=== PATIENT | female | born 1940 | race Caucasian/White ===

== ENCOUNTER 2019-09-02 11:09 | Inpatient (IN) | payer MEDICARE ==
[~2019-09-02] VITALS: Ht 167.6 cm; Wt 88.4 kg
--- NOTE | 2019-09-02 12:42 | NUR ---
PT ADMITTED. PT ADMITTED AT 1220. VITALS TAKEN. PT SATING IN THE 90S ON 2L O2 VIA NC. PT BROUGHT TO ROOM BY EMS. PT ORIENTED TO ROOM. CALL LIGHT IN REACH. PT CALLING FAMILY NOW. LEVOQUIN INFUSING AT THIS TIME.
[2019-09-02] MEDS ORDERED: LEVSOD137 PO (12:57)
[2019-09-02] MEDS ORDERED: TOPROL XL50 MG PO (12:58)
[2019-09-02] MEDS ORDERED: HYDCHL25 PO (12:58)
[2019-09-02] MEDS ORDERED: Aspir 8181 MG PO (12:59)
[2019-09-02] MEDS ORDERED: ATOR80 PO (13:00)
[2019-09-02] MEDS ORDERED: ZOFRAN4 MG PO (13:01)
[2019-09-02] MEDS ORDERED: CENTRUM SILVER1 EAC5 PO (13:03)
[2019-09-02] MEDS ORDERED: PROBIOTIC (13:03)
[2019-09-02] MEDS ORDERED: Calcium 600 +1 EAC1 PO (13:04)
[2019-09-02] MEDS ORDERED: MAGNESIUM PO (13:05)
[2019-09-02] MEDS ORDERED: METO50 PO (13:55)
--- NOTE | 2019-09-02 18:16 | NUR ---
SHIFT SUMMARY PT SITTING UP IN BED. CALL LIGHT IN REACH. PT IND IN ROOM TO BATHROOM. 2L O2 IN PLACE. TOLERATED WELL. PT A&O. FLU SWAB COLLECTED AND PENDING. NO OTHER CHANGES IN ASSESSMENT AT THIS TIME. VSS. WILL CONTINUE TO MONITOR UNTIL TURNOVER IS COMPLETE.
--- NOTE | 2019-09-02 18:34 | NUR ---
DNR WRISTBAND PLACED. DNR WRSITBAND PLACED TO L WRSIT. VERIFIED BY PATRICA SAVAGE RN
[2019-09-02 21:32] LABS: Influenza A Negative (NEGATIVE); Influenza B Negative (NEGATIVE)
--- NOTE | 2019-09-03 05:00 | NUR ---
SHIFT SUMMARY ADMITTED FOR COUGH (LLL PNEUMONIA). DNR CODE. ON 1.5 LPM O2 THIS SHIFT - O2 SAT IN MID 90'S. RA IS BASELINE. FLU A & B IS RULED OUT, RULE OUT ISOLATION IS NOW DC'D. IV ANTIBIOTICS ARE SCHEDULED. PT IS INDEPENDENT TO BATHROOM. TELEMETRY IS MONITORING: NSR W/PAC'S @ 93 BPM. A&O X4, CARDIAC DIET, LOVENOX FOR DVT PREVENTION, REFUSING FAINA HOSE. SPUTUM SAMPLE STILL NEEDED. LIVES WITH . WATCHING WBC LABS DUE TO LEUKOCYTOSIS. HX: CABG, 4 STENTS, HTN, CAD, AFIB. TYLENOL ORDERED THIS SHIFT FOR CHRONIC BACK/SHOULDER PAIN, PT STATES IT CONTROLLED HER PAIN ADEQUATELY.
[2019-09-03 05:38] LABS: BASOPHILS ABSOLUTE AUTO 0.02 K/mm3 (0.00-0.23); BASOPHILS PERCENT AUTO 0 % (0-2); EOSINOPHILS ABSOLUTE AUTO 0.01 K/mm3 (0.00-0.68); EOSINOPHILS PERCENT AUTO 0 % (0-6); Hematocrit 33.1 % (33.0-51.0); Hemoglobin 10.7 g/dL (11.5-16.0); IMMATURE GRAN ABSOLUTE AUTO 0.07 K/mm3 (0.00-0.10); IMMATURE GRAN PERCENT AUTO 1 % (0-1); LYMPHOCYTES PERCENT AUTO 11 % (21-46); MONOCYTES ABSOLUTE AUTO 1.18 K/mm3 (0.16-1.47); MONOCYTES PERCENT AUTO 8 % (4-13); Mean Corpuscular HGB 28.9 pg (26.0-34.0); Mean Corpuscular HGB Conc 32.3 g/dL (31.5-36.5); Mean Corpuscular Volume 90 fL (80-100); Mean Platelet Volume 10.3 fL (9.1-12.4); NEUTROPHILS ABSOLUTE AUTO 11.87 K/mm3 (1.96-9.15); NEUTROPHILS PERCENT AUTO 81 % (41-73); Platelet Count 308 K/mm3 (150-400); RDW Coefficient Variation 13.6 % (11.7-14.2); RDW Standard Deviation 44.7 fL (35.1-46.3); White Blood Cell Count 14.75 K/mm3 (4.00-11.30)
[2019-09-03 06:03] LABS: Alanine Aminotransfer (ALT/SGP 41 U/L (12-78); Albumin, Blood 2.5 g/dL (3.4-5.0); Albumin/Globulin Ratio 0.6 (0.8-1.8); Alk Phos 104 U/L (50-136); Anion Gap 6 mmol/L (6-16); Aspartate Aminotrans (AST/SGOT 62 U/L (12-37); Bilirubin, Total 0.7 mg/dL (0.1-1.0); Blood Urea Nitrogen 12 mg/dL (8-24); Bun/Creatinine Ratio 18.3 (12.0-20.0); CO2, Blood 30 mmol/L (21-32); Calcium, Blood 8.3 mg/dL (8.5-10.1); Chloride, Blood 89 mmol/L (98-108); Creatinine, Blood 0.66 mg/dL (0.40-1.00); Globulin, Blood 3.9 g/dL (2.2-4.0); Glomerular Filtration Rate >60 (60-); Glucose, Blood 147 mg/dL (70-99); Potassium, Blood 3.3 mmol/L (3.5-5.5); Sodium, Blood 125 mmol/L (136-145); Total Protein, Blood 6.4 g/dL (6.4-8.2)
--- NOTE | 2019-09-03 09:15 | NUR ---
PT ON RA. PT SATING AT 93-95% ON RA. WILL CONTINUE TO MONITOR FOR DESATURATION.
--- NOTE | 2019-09-03 17:38 | NUR ---
SHIFT SUMMARY PT HAD ANXIETY THIS AM. PT MEDICATED WITH ATIVAN AND TOOK A SMALL NAP. PT NOW STATES SHE "FEELS MUCH BETTER." PT AMBULATING TO BATHROOM INDEPENDENTLY. USING O2 ONLY WHEN AMBULATING. PT SATING IN THE 90S ON RA OTHERWISE. NO OTHER CHANGES IN ASSESSMENT AT THIS TIME. VSS. WILL CONTINUE TO MONITOR UNTIL TURNOVER IS COMPLETE.
--- NOTE | 2019-09-04 03:59 | NUR ---
NUCLEAR PHYSICS TEACHER SUMMARY PT A/O X4. SLEPT OFF AND ON TONIGHT. ON ROOM AIR SATTING ABOVE 90% INDEPENDENT IN ROOM. SOB WHEN AMBULATING TO BATHROOM. NASAL CANNULA BY BEDSIDE. PT KNOWS TO PUT NASAL CANNULA WITH 1L BACK ON WHEN HAVING SOB. DENIES PAIN. PT HAS SOME MUSCLE ACHES ON HER BACK AND SHOULDERS. WARM PAD PLACED ACROSS HER BACK. PT SEEMS TO ENJOY THAT. PT STATED SHE HAS NOT HAD SPUTUM FOR HER SPUTUM COLLECTION. VITALS STABLE. SHE DID NOT EXPERIENCE ANY ANXIETY TONIGHT. NO ACUTE CHANGES, WILL CONTINUE TO MONITOR.
[2019-09-04 05:08] LABS: BASOPHILS ABSOLUTE AUTO 0.02 K/mm3 (0.00-0.23); BASOPHILS PERCENT AUTO 0 % (0-2); EOSINOPHILS ABSOLUTE AUTO 0.06 K/mm3 (0.00-0.68); EOSINOPHILS PERCENT AUTO 1 % (0-6); Hematocrit 33.6 % (33.0-51.0); IMMATURE GRAN ABSOLUTE AUTO 0.04 K/mm3 (0.00-0.10); IMMATURE GRAN PERCENT AUTO 0 % (0-1); LYMPHOCYTES ABSOLUTE AUTO 1.32 K/mm3 (0.84-5.20); LYMPHOCYTES PERCENT AUTO 12 % (21-46); MONOCYTES ABSOLUTE AUTO 0.81 K/mm3 (0.16-1.47); MONOCYTES PERCENT AUTO 7 % (4-13); Mean Corpuscular HGB 29.1 pg (26.0-34.0); Mean Corpuscular HGB Conc 32.7 g/dL (31.5-36.5); Mean Corpuscular Volume 89 fL (80-100); Mean Platelet Volume 9.7 fL (9.1-12.4); NEUTROPHILS ABSOLUTE AUTO 8.82 K/mm3 (1.96-9.15); NEUTROPHILS PERCENT AUTO 80 % (41-73); Platelet Count 328 K/mm3 (150-400); RDW Coefficient Variation 13.3 % (11.7-14.2); RDW Standard Deviation 43.4 fL (35.1-46.3); Red Blood Cell Count 3.78 M/mm3 (3.80-5.20); White Blood Cell Count 11.07 K/mm3 (4.00-11.30)
[2019-09-04 05:31] LABS: Alanine Aminotransfer (ALT/SGP 46 U/L (12-78); Albumin, Blood 2.4 g/dL (3.4-5.0); Albumin/Globulin Ratio 0.6 (0.8-1.8); Alk Phos 104 U/L (50-136); Anion Gap 8 mmol/L (6-16); Aspartate Aminotrans (AST/SGOT 64 U/L (12-37); Bilirubin, Total 0.5 mg/dL (0.1-1.0); Blood Urea Nitrogen 11 mg/dL (8-24); Bun/Creatinine Ratio 17.1 (12.0-20.0); CO2, Blood 30 mmol/L (21-32); Calcium, Blood 8.6 mg/dL (8.5-10.1); Chloride, Blood 88 mmol/L (98-108); Creatinine, Blood 0.64 mg/dL (0.40-1.00); Globulin, Blood 4.1 g/dL (2.2-4.0); Glomerular Filtration Rate >60 (60-); Glucose, Blood 86 mg/dL (70-99); Potassium, Blood 3.5 mmol/L (3.5-5.5); Sodium, Blood 126 mmol/L (136-145); Total Protein, Blood 6.5 g/dL (6.4-8.2)
--- NOTE | 2019-09-04 06:50 | NUR ---
Patient gave permission on 09-03-19 to work with this student on 09-04-19
[2019-09-04] MEDS ORDERED: ACET325 PO (12:57)
[2019-09-04] MEDS ORDERED: CEFD300 PO (12:58)
[2019-09-04] MEDS ORDERED: GUAI600T33 PO (12:59)
[2019-09-04] MEDS ORDERED: OMEP20ER PO (13:00)
[2019-09-04] MEDS ORDERED: TRAZ50 PO (13:01)
[2019-09-04] MEDS ORDERED: ALBU90OI INH (13:03)
--- NOTE | 2019-09-04 14:25 | NUR ---
PT DISCHARGED. PT DISCAHRGED AT 1423. PT IN STABLE CONDTION. IV REMOVED & INTACT. PT EDUCATED ON DC INSTRUCTIONS & FOLLOW UP APPOINTMENTS. NEW MEDS FAXED TO [facility]. PT DENIES NEED FOR FURTHER INSTRUCTION. PT WHEELED OUT BY ESCORT VOLUNTEER AND DRIVEN HOME BY FRIEND.
== END 2019-09-04 14:28 | disposition home or self-care (01) | DRG 193 ==
LOC: EFM RAD 11:09 → MEDS 12:39
PROVIDERS: ADMIT Family Medicine
DX: J18.9 Pneumonia, unspecified organism (principal); J96.01 Acute respiratory failure with hypoxia; G93.41 Metabolic encephalopathy; E87.1 Hypo-osmolality and hyponatremia; E87.6 Hypokalemia; T36.8X5A Adverse effect of other systemic antibiotics, initial encounter; G47.00 Insomnia, unspecified; Z66 Do not resuscitate; E03.9 Hypothyroidism, unspecified; I10 Essential (primary) hypertension; E78.5 Hyperlipidemia, unspecified; Z95.1 Presence of aortocoronary bypass graft; Z95.5 Presence of coronary angioplasty implant and graft; Z79.82 Long term (current) use of aspirin; Z79.899 Other long term (current) drug therapy; Z87.891 Personal history of nicotine dependence
CPT/HCPCS: 36415; 71046; 80053; 85025; 87804; 94761; A9270; J0696; J1650; J1956; J7050

== ENCOUNTER → 2019-09-02 | Outpatient (CLI) | payer MEDICARE ==
[~2019-09-02] MED LIST: ACET325 PO; ALBU90OI INH; ATOR80 PO; Aspir 8181 MG PO; CEFD300 PO; CENTRUM SILVER1 EAC5 PO; Calcium 600 +1 EAC1 PO; GUAI600T33 PO; HYDCHL25 PO; LEVSOD137 PO; MAGNESIUM PO; METO50 PO; OMEP20ER PO; PROBIOTIC; TOPROL XL50 MG PO; TRAZ50 PO; ZOFRAN4 MG PO
[2019-09-02 11:08] LABS: BASOPHILS ABSOLUTE AUTO 0.05 K/mm3 (0.00-0.23); BASOPHILS PERCENT AUTO 0 % (0-2); EOSINOPHILS ABSOLUTE AUTO 0.02 K/mm3 (0.00-0.68); EOSINOPHILS PERCENT AUTO 0 % (0-6); Hematocrit 34.5 % (33.0-51.0); Hemoglobin 11.3 g/dL (11.5-16.0); IMMATURE GRAN ABSOLUTE AUTO 0.07 K/mm3 (0.00-0.10); IMMATURE GRAN PERCENT AUTO 0 % (0-1); LYMPHOCYTES ABSOLUTE AUTO 1.26 K/mm3 (0.84-5.20); LYMPHOCYTES PERCENT AUTO 7 % (21-46); MONOCYTES ABSOLUTE AUTO 1.18 K/mm3 (0.16-1.47); MONOCYTES PERCENT AUTO 6 % (4-13); Mean Corpuscular HGB 29.4 pg (26.0-34.0); Mean Corpuscular HGB Conc 32.8 g/dL (31.5-36.5); Mean Corpuscular Volume 90 fL (80-100); Mean Platelet Volume 9.8 fL (9.1-12.4); NEUTROPHILS PERCENT AUTO 86 % (41-73); Platelet Count 310 K/mm3 (150-400); RDW Coefficient Variation 14.1 % (11.7-14.2); RDW Standard Deviation 45.8 fL (35.1-46.3); Red Blood Cell Count 3.85 M/mm3 (3.80-5.20); White Blood Cell Count 18.58 K/mm3 (4.00-11.30)
[2019-09-02 11:44] LABS: Alanine Aminotransfer (ALT/SGP 34 U/L (12-78); Albumin, Blood 2.8 g/dL (3.4-5.0); Albumin/Globulin Ratio 0.6 (0.8-1.8); Alk Phos 117 U/L (50-136); Anion Gap 7 mmol/L (6-16); Aspartate Aminotrans (AST/SGOT 47 U/L (12-37); Bilirubin, Total 0.7 mg/dL (0.1-1.0); Blood Urea Nitrogen 15 mg/dL (8-24); Bun/Creatinine Ratio 21.6 (12.0-20.0); CO2, Blood 31 mmol/L (21-32); Calcium, Blood 8.9 mg/dL (8.5-10.1); Chloride, Blood 92 mmol/L (98-108); Creatinine, Blood 0.69 mg/dL (0.40-1.00); Globulin, Blood 4.5 g/dL (2.2-4.0); Glomerular Filtration Rate >60 (60-); Glucose, Blood 115 mg/dL (70-99); Potassium, Blood 3.8 mmol/L (3.5-5.5); Sodium, Blood 130 mmol/L (136-145); Total Protein, Blood 7.3 g/dL (6.4-8.2)
== END ==
LOC: LAB SHORT 11:00 → LAB EV 11:00
PROVIDERS: Emergency Medicine
DX: R05 Cough (principal)
CPT/HCPCS: 80053; 85025

== ENCOUNTER 2021-02-08 08:05 | Day surgery (SDC) | payer MEDICARE ==
[~2021-02-08] VITALS: Ht 165.1 cm; Wt 80.6 kg
--- NOTE | 2021-02-08 10:05 | NUR ---
02/08/21 1005 Jaky Morgan [facility] CASE WITH DR. TRINIDAD. SEE ANETHESIA RECORD FOR CARE
--- NOTE | 2021-02-08 11:22 | NUR ---
Patient up to Ambulate independently. Gait steady. Discharge instructions reviewed with patient. Patient verbalizes understanding. Copy given to patient to take home. Discharged via wheelchair to private car for ride home. DR. HUNTER MADE APPOINT AT [facility] FOR PATIENT TO FOLLOW UP WITH DR. SHAH. INFORMATION WRITTEN ON TOP OF DISCHARGE INSTRUCTION PATINET COPY.
== END 2021-02-08 23:01 | disposition home or self-care (01) ==
LOC: ORSCMMR 08:05 → ORD 08:05 → ORSCMMR 08:06 → ORD 10:00
PROVIDERS: Surgery
PROC: 0DBP8ZX Excision of Rectum, Via Natural or Artificial Opening Endoscopic, Diagnostic (ICD-10-PCS; principal; 2021-02-08 10:00)
DX: C20 Malignant neoplasm of rectum (principal); I10 Essential (primary) hypertension; I25.10 Atherosclerotic heart disease of native coronary artery without angina pectoris; K21.9 Gastro-esophageal reflux disease without esophagitis; E78.5 Hyperlipidemia, unspecified; E03.9 Hypothyroidism, unspecified; Z95.1 Presence of aortocoronary bypass graft; Z87.891 Personal history of nicotine dependence; Z79.82 Long term (current) use of aspirin; Z79.899 Other long term (current) drug therapy
CPT/HCPCS: J2704; J7120

== ENCOUNTER 2021-02-26 08:25 | Day surgery (SDC) | payer MEDICARE ==
[~2021-02-26] VITALS: Ht 165.1 cm; Wt 79.7 kg
[~2021-02-26 08:25] MED LIST changes: +[UNRECOGNIZED DRUG - OTHER] PO
--- NOTE | 2021-02-26 11:50 | NUR ---
02/26/21 1150 Flora Jackson NACL AND HEPARIN USED TO FLUSH MEDIPORT.
--- NOTE | 2021-02-26 12:36 | NUR ---
02/26/21 1236 Aparna Montague 1230-XRAY IN THE ROOM AT THIS TIME.
== END 2021-02-26 13:13 | disposition home or self-care (01) ==
LOC: ORSCSDS 08:25
PROVIDERS: Surgery
PROC: 0JH60WZ Insertion of Totally Implantable Vascular Access Device into Chest Subcutaneous Tissue and Fascia, Open Approach (ICD-10-PCS; principal; 2021-02-26 10:00)
DX: C21.8 Malignant neoplasm of overlapping sites of rectum, anus and anal canal (principal); I10 Essential (primary) hypertension; I25.10 Atherosclerotic heart disease of native coronary artery without angina pectoris; J45.909 Unspecified asthma, uncomplicated; Z87.891 Personal history of nicotine dependence; K21.9 Gastro-esophageal reflux disease without esophagitis; Z79.82 Long term (current) use of aspirin; Z79.899 Other long term (current) drug therapy
CPT/HCPCS: 77001; 93005; 93010; C1788; J0690; J1100; J1642; J1885; J2001; J2250; J2405; J2704; J3010; J7120

== ENCOUNTER 2021-05-12 21:26 | Emergency (ER) | payer MEDICARE ==
[~2021-05-12] VITALS: Ht 167.6 cm; Wt 72.6 kg
[2021-05-12 22:07] LABS: Source, Urine Voided
[2021-05-12 22:10] LABS: Hematocrit 31.8 % (33.0-51.0); Hemoglobin 10.6 g/dL (11.5-16.0); Mean Corpuscular HGB 29.4 pg (26.0-34.0); Mean Corpuscular HGB Conc 33.3 g/dL (31.5-36.5); Mean Corpuscular Volume 88 fL (80-100); Mean Platelet Volume 9.7 fL (9.1-12.4); NRBC ABSOLUTE 0.03 K/mm3 (0.00-0.02); NRBC Auto 0.4 /100 WBC (0.0-0.2); Platelet Count 254 K/mm3 (150-400); RDW Coefficient Variation 20.7 % (11.7-14.2); RDW Standard Deviation 66.4 fL (35.1-46.3)
[2021-05-12 22:11] LABS: Bilirubin, Urine Neg (Neg); Blood, Urine 1+ (Neg); Glucose Qualitative, Urine Neg (Neg); Ketones, Urine Neg (Neg); Leukocyte Esterase, Urine 1+ (Neg); Nitrite, Urine Neg (Neg); Protein, Urine 3+ (Neg); Urobilinogen, Urine 2+ (Normal)
[2021-05-12 22:21] LABS: Appearance, Urine Clear (Clear); Color, Urine Yellow (P-Yellow)
[2021-05-12 22:22] LABS: Amorphous Light (0-Heavy); Bacteria Not Seen /hpf; Red Blood Cells, Urine Rare /hpf (0-2); Squamous Epithelial Cells Not Seen /hpf (Few); White Blood Cells, Urine 0-2 /hpf (0-5)
[2021-05-12 22:29] LABS: Alanine Aminotransfer (ALT/SGP 25 U/L (12-78); Albumin, Blood 2.4 g/dL (3.4-5.0); Albumin/Globulin Ratio 0.6 (0.8-1.8); Alk Phos 102 U/L (50-136); Anion Gap 8 mmol/L (6-16); Aspartate Aminotrans (AST/SGOT 42 U/L (12-37); Bilirubin, Total 0.4 mg/dL (0.1-1.0); Blood Urea Nitrogen 16 mg/dL (8-24); Bun/Creatinine Ratio 22.4 (12.0-20.0); CO2, Blood 27 mmol/L (21-32); Calcium, Blood 9.4 mg/dL (8.5-10.1); Chloride, Blood 95 mmol/L (98-108); Creatinine, Blood 0.71 mg/dL (0.40-1.00); Globulin, Blood 3.8 g/dL (2.2-4.0); Glomerular Filtration Rate >60 (60-); Glucose, Blood 134 mg/dL (70-99); Potassium, Blood 3.3 mmol/L (3.5-5.5); Sodium, Blood 130 mmol/L (136-145); Total Protein, Blood 6.2 g/dL (6.4-8.2)
[2021-05-12 22:36] LABS: BAND PERCENT MAN 25 % (0-8); BASOPHILS PERCENT MAN 0 % (0-2); EOSINOPHILS PERCENT MAN 0 % (0-6); LYMPHOCYTES ABSOLUTE MAN 0.64 K/mm3 (0.84-5.20); LYMPHOCYTES PERCENT MAN 9 % (21-46); METAMYELOCYTE ABSOLUTE MAN 0.14 K/mm3 (0.00-0.00); METAMYELOCYTE PERCENT MAN 2 % (0-0); MONOCYTES ABSOLUTE MAN 0.43 K/mm3 (0.16-1.47); MONOCYTES PERCENT MAN 6 % (4-13); MYELOCYTE ABSOLUTE MAN 0.07 K/mm3 (0.00-0.00); MYELOCYTE PERCENT MAN 1 % (0-0); SEG NEUTROPHILS PERCENT MAN 57 % (41-73); TOTAL CELLS COUNTED 100
[2021-05-13] MEDS ORDERED: Magnesium Citr296 ML PO (00:39)
[2021-05-13] MEDS ORDERED: Colace100 MG PO (00:39)
== END 2021-05-13 01:41 | disposition home or self-care (01) ==
LOC: ER 21:26
PROVIDERS: Emergency Medicine
DX: R10.30 Lower abdominal pain, unspecified (principal); R19.7 Diarrhea, unspecified; I25.10 Atherosclerotic heart disease of native coronary artery without angina pectoris; I10 Essential (primary) hypertension; E78.5 Hyperlipidemia, unspecified; E03.9 Hypothyroidism, unspecified; Z88.0 Allergy status to penicillin; Z88.8 Allergy status to other drugs, medicaments and biological substances; Z79.899 Other long term (current) drug therapy; Z79.82 Long term (current) use of aspirin; Z95.5 Presence of coronary angioplasty implant and graft; Z87.891 Personal history of nicotine dependence
CPT/HCPCS: 51701; 51798; 74177; 80053; 81001; 83690; 85025; 87086; 96374; 96375; 99285-25; J1885; J2270; J2405; Q9967

== ENCOUNTER 2021-06-22 16:27 | Emergency (ER) | payer MEDICARE ==
[~2021-06-22] VITALS: Ht 165.1 cm; Wt 77.1 kg
[~2021-06-22 16:27] MED LIST changes: +Colace100 MG PO; +Magnesium Citr296 ML PO
== END 2021-06-22 18:39 | disposition home or self-care (01) ==
LOC: ER 16:27
DX: S00.11XA Contusion of right eyelid and periocular area, initial encounter (principal); S00.83XA Contusion of other part of head, initial encounter; Z88.0 Allergy status to penicillin; Z88.8 Allergy status to other drugs, medicaments and biological substances; Z79.82 Long term (current) use of aspirin; Z79.899 Other long term (current) drug therapy; Z87.891 Personal history of nicotine dependence; W19.XXXA Unspecified fall, initial encounter
CPT/HCPCS: 70450; 72125

== ENCOUNTER 2021-10-06 02:09 | Inpatient (IN) | payer MEDICARE ==
[~2021-10-06] VITALS: Ht 165.1 cm; Wt 74.4 kg
[~2021-10-06 02:09] MED LIST changes: +EUTHYROX125 MCG PO; -LEVSOD137 PO; -METO50 PO; +METO50ER PO
[2021-10-06 02:38] LABS: BASOPHILS ABSOLUTE AUTO 0.02 K/mm3 (0.00-0.23); BASOPHILS PERCENT AUTO 0 % (0-2); EOSINOPHILS ABSOLUTE AUTO 0.02 K/mm3 (0.00-0.68); EOSINOPHILS PERCENT AUTO 0 % (0-6); Hematocrit 35.7 % (33.0-51.0); Hemoglobin 10.6 g/dL (11.5-16.0); IMMATURE GRAN ABSOLUTE AUTO 0.03 K/mm3 (0.00-0.10); IMMATURE GRAN PERCENT AUTO 0 % (0-1); LYMPHOCYTES ABSOLUTE AUTO 0.45 K/mm3 (0.84-5.20); LYMPHOCYTES PERCENT AUTO 5 % (21-46); MONOCYTES ABSOLUTE AUTO 0.24 K/mm3 (0.16-1.47); MONOCYTES PERCENT AUTO 3 % (4-13); Mean Corpuscular HGB 29.9 pg (26.0-34.0); Mean Corpuscular HGB Conc 29.7 g/dL (31.5-36.5); Mean Corpuscular Volume 101 fL (80-100); Mean Platelet Volume 9.8 fL (9.1-12.4); NEUTROPHILS ABSOLUTE AUTO 7.61 K/mm3 (1.96-9.15); NEUTROPHILS PERCENT AUTO 91 % (41-73); Platelet Count 306 K/mm3 (150-400); RDW Coefficient Variation 16.2 % (11.7-14.2); RDW Standard Deviation 59.7 fL (35.1-46.3); Red Blood Cell Count 3.55 M/mm3 (3.80-5.20); White Blood Cell Count 8.37 K/mm3 (4.00-11.30)
[2021-10-06 02:55] LABS: Alanine Aminotransfer (ALT/SGP 43 U/L (12-78); Albumin, Blood 2.4 g/dL (3.4-5.0); Albumin/Globulin Ratio 0.6 (0.8-1.8); Alk Phos 140 U/L (50-136); Anion Gap 9 mmol/L (6-16); Aspartate Aminotrans (AST/SGOT 49 U/L (12-37); Bilirubin, Total 0.3 mg/dL (0.1-1.0); Blood Urea Nitrogen 19 mg/dL (8-24); Bun/Creatinine Ratio 23.3 (12.0-20.0); CO2, Blood 24 mmol/L (21-32); Chloride, Blood 104 mmol/L (98-108); Creatinine, Blood 0.82 mg/dL (0.40-1.00); Globulin, Blood 4.3 g/dL (2.2-4.0); Glomerular Filtration Rate >60 (60-); Glucose, Blood 169 mg/dL (70-99); Sodium, Blood 137 mmol/L (136-145); Total Protein, Blood 6.7 g/dL (6.4-8.2)
[2021-10-06 05:14] LABS: Source, Urine Straight Cath
[2021-10-06 05:21] LABS: Bilirubin, Urine Neg (Neg); Blood, Urine 4+ (Neg); Glucose Qualitative, Urine Neg (Neg); Ketones, Urine Neg (Neg); Leukocyte Esterase, Urine 3+ (Neg); Nitrite, Urine Neg (Neg); Protein, Urine 3+ (Neg); Urobilinogen, Urine NORM (Normal)
[2021-10-06 05:32] LABS: Appearance, Urine Hazy (Clear); Bacteria Few /hpf; Color, Urine Yellow (P-Yellow); Squamous Epithelial Cells Few /hpf (Few); White Blood Cells, Urine 25-50 /hpf (0-5)
--- NOTE | 2021-10-06 17:13 | NUR ---
SUMMARY PT ADMITTED FROM THE ER, PT SLID FROM THE GURNEY TO THE BED WITH STAFF ASSIST, PT IS ALERT AND ORIENTED, SHE REPORTS SHE CANNOT GET UP TO AMBULATE DUE TO ABD PAIN, BUT REPORTS SHE IS NORMALLY ABLE TO AMBULATE WITH A WALKER, PT'S IV FLUIDS INFUSING THROUGH MEDIPORT R CHEST WALL, ACCESSED IN THE ER, PT C/O SEVERE ABD PAIN UPON ARRIVAL, MED PER EMAR WITH LITTLE SUCCESS, CALL TO DR LEAL TO CHANGE PAIN MEDICATIONS, PT HAS BEEN MED PER EMAR FOR PAIN AND NAUSEA AND REPORTS IS NOW FEELING A LITTLE BETTER, PT PLACED ON PUR-WICK FOR URINARY INCONTINENCE, PER PT REQUEST, URINE IS CLEAR VASILIY, SPOUSE HAS BEEN IN TO VISIT, SURGEON HAS BEEN CONSULTED, WAITING FOR THEIR RECOMMENDATIONS, VSS, WILL CONT TO MONITOR
[2021-10-07 05:18] LABS: BASOPHILS ABSOLUTE AUTO 0.03 K/mm3 (0.00-0.23); BASOPHILS PERCENT AUTO 0 % (0-2); EOSINOPHILS ABSOLUTE AUTO 0.03 K/mm3 (0.00-0.68); EOSINOPHILS PERCENT AUTO 0 % (0-6); Hematocrit 28.6 % (33.0-51.0); Hemoglobin 8.4 g/dL (11.5-16.0); IMMATURE GRAN PERCENT AUTO 1 % (0-1); LYMPHOCYTES ABSOLUTE AUTO 0.22 K/mm3 (0.84-5.20); LYMPHOCYTES PERCENT AUTO 1 % (21-46); MONOCYTES ABSOLUTE AUTO 0.44 K/mm3 (0.16-1.47); MONOCYTES PERCENT AUTO 3 % (4-13); Mean Corpuscular HGB 29.6 pg (26.0-34.0); Mean Corpuscular HGB Conc 29.4 g/dL (31.5-36.5); Mean Corpuscular Volume 101 fL (80-100); Mean Platelet Volume 9.3 fL (9.1-12.4); NEUTROPHILS ABSOLUTE AUTO 17.05 K/mm3 (1.96-9.15); NEUTROPHILS PERCENT AUTO 95 % (41-73); Platelet Count 204 K/mm3 (150-400); RDW Coefficient Variation 16.5 % (11.7-14.2); RDW Standard Deviation 61.2 fL (35.1-46.3); Red Blood Cell Count 2.84 M/mm3 (3.80-5.20); White Blood Cell Count 17.87 K/mm3 (4.00-11.30)
--- NOTE | 2021-10-07 05:44 | NUR ---
Rn summary: Patient is alert and orineted. Pt did have significant lower abdominal pain at beginning of shift. Pt then was able to sleep for 3 hours soundly. Pt does have a large hernia on her abdomen. Abdomen is tender to touch. Bowel tones hypoactive. Pt did have one lg liq incontinent stool. Pt had been using a purwick but wanted to try just pull ups this am. Pt had 430 out this shift. Urine is sami with a tinge of pink. Pt has been medicated this shift with Lortab 5/325mg at 0110 with good relief. This am pt had increased discomfort and dilaudid 1 mg IV given with good relief. Pt has a mediport that is accessed. Site looks good. Call light is in reach. Will continue to monitor.
[2021-10-07 05:51] LABS: Alanine Aminotransfer (ALT/SGP 31 U/L (12-78); Albumin/Globulin Ratio 0.5 (0.8-1.8); Alk Phos 106 U/L (50-136); Anion Gap 4 mmol/L (6-16); Aspartate Aminotrans (AST/SGOT 29 U/L (12-37); Bilirubin, Total 0.6 mg/dL (0.1-1.0); Blood Urea Nitrogen 17 mg/dL (8-24); Bun/Creatinine Ratio 21.6 (12.0-20.0); CO2, Blood 29 mmol/L (21-32); Calcium, Blood 8.7 mg/dL (8.5-10.1); Chloride, Blood 103 mmol/L (98-108); Creatinine, Blood 0.79 mg/dL (0.40-1.00); Glomerular Filtration Rate >60 (60-); Glucose, Blood 113 mg/dL (70-99); Potassium, Blood 4.1 mmol/L (3.5-5.5); Sodium, Blood 136 mmol/L (136-145)
--- NOTE | 2021-10-07 12:12 | NUR ---
Spoke with Dr Tubbs and discussed case. Pt appears to be struggling regarding having surgery. Pt may benefit from Palliative Care visit. Pt resting in bed and is A&OX4. Pt denies pain and dyspnea at this time. Pt does report mild but manageable anxiety. Engaged in therapeutic listening as Pt discusses her [facility]. Pt reports being in her 3rd marriage and having 7 children that she "inherited". 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 Pt states "I'm tired". She reports she is in agreement with Dr Roberts' plan for 1 radiation treatment, 1 chemo therapy treatment and 1 surgery. She states she wants the rodas, resection and colostomy done at the same time. She states she won't agree to surgery if this can not be done. Pt states she was told with this plan the cancer would be cured. She reports if complications arise after surgery her plan is to focus on comfort and hospice. She does report not telling her spouse of plan. Discussed the importance of communicating with family in order for them to understand her wishes. She reports plan to gather family to assist with telling her of her plan. Continued therapeutic listening. Pt expresses appreciation and reports no other concerns at this time. Spoke with Primary JORDYN Arauz and discussed case. Palliative Care will remain availabe.
--- NOTE | 2021-10-07 18:54 | NUR ---
SHIFT SUMMARY PT AXO PLEASANT AND COOPERATIVE WITH CARE. MEDICATED FOR PAIN PER EMAR. SOB WITH REPOSITIONING AND LONG CONVERSATION. VSS. PT ON 1.5L VIA NC 92-95%. PT TOLERATING FULL LIQUID DIET. PHYSICAL THERAPY EVALUATED PT, SEE NOTE. BED IN LOW POSITION, CALL LIGHT WITHIN REACH. INCONTINENT. CALLS APPROPRIATELY. 1 BM THIS SHIFT, LIQUID BROWN STOOL. VASILIY URINE.
--- NOTE | 2021-10-08 03:23 | NUR ---
SHIFT SUMMARY PT CONTINUES TO REMAIN A/OX4, ABLE TO REPOSITION SELF IN BED. PAIN CONTROL PRIMARY GOAL DURING SHIFT- PT COMPLAINTS CHRONIC GENERALIZED PAIN AND ABDOMINAL PAIN. RESPONDING WELL TO NORCO AND PRN BREAKTHROUGH MORPHINE.
[2021-10-08 10:20] LABS: BASOPHILS ABSOLUTE AUTO 0.04 K/mm3 (0.00-0.23); BASOPHILS PERCENT AUTO 0 % (0-2); EOSINOPHILS ABSOLUTE AUTO 0.15 K/mm3 (0.00-0.68); EOSINOPHILS PERCENT AUTO 1 % (0-6); Hematocrit 28.2 % (33.0-51.0); Hemoglobin 8.6 g/dL (11.5-16.0); IMMATURE GRAN ABSOLUTE AUTO 0.26 K/mm3 (0.00-0.10); IMMATURE GRAN PERCENT AUTO 1 % (0-1); LYMPHOCYTES ABSOLUTE AUTO 0.19 K/mm3 (0.84-5.20); LYMPHOCYTES PERCENT AUTO 1 % (21-46); MONOCYTES ABSOLUTE AUTO 0.39 K/mm3 (0.16-1.47); MONOCYTES PERCENT AUTO 2 % (4-13); Mean Corpuscular HGB Conc 30.5 g/dL (31.5-36.5); Mean Corpuscular Volume 98 fL (80-100); Mean Platelet Volume 9.7 fL (9.1-12.4); NEUTROPHILS ABSOLUTE AUTO 21.35 K/mm3 (1.96-9.15); NEUTROPHILS PERCENT AUTO 95 % (41-73); Platelet Count 218 K/mm3 (150-400); RDW Coefficient Variation 16.4 % (11.7-14.2); RDW Standard Deviation 59.5 fL (35.1-46.3); Red Blood Cell Count 2.87 M/mm3 (3.80-5.20); White Blood Cell Count 22.38 K/mm3 (4.00-11.30)
[2021-10-08 10:35] LABS: Anion Gap 4 mmol/L (6-16); Blood Urea Nitrogen 12 mg/dL (8-24); Bun/Creatinine Ratio 17.3 (12.0-20.0); CO2, Blood 29 mmol/L (21-32); Calcium, Blood 8.7 mg/dL (8.5-10.1); Chloride, Blood 102 mmol/L (98-108); Glomerular Filtration Rate >60 (60-); Glucose, Blood 110 mg/dL (70-99); Potassium, Blood 3.9 mmol/L (3.5-5.5); Sodium, Blood 135 mmol/L (136-145)
--- NOTE | 2021-10-08 12:26 | NUR ---
Pt resting in bed speaking with Primary RN Radha. Pt discussing to Primary RN how she does not have a choice but to do surgery. She reports at her age she has no other options. She does report being agreement to do surgery though. She requesting to start her bowel prep today for when she goes to [place] on Monday. She has instructed her to bring in the instruction sheet for her GI specialist office. Spoke with Radha and discussed case. Palliative Care will remain available.
--- NOTE | 2021-10-08 16:40 | NUR ---
SHIFT SUMMARY PATIENT MEDICATED FOR PAIN X4. PATIENT MEDICATED FOR NAUSEA X1. PATIENT DENIES SOB. PATIENT IS A 1 PERSON TRANSFER WITH A FWW. PATIENT STATES SHE FEELS TOO WEAK TO GET OUT OF BED TODAY. PATIENT REQUESTING SURGERY PREP. ENCOURAGED PATIENT TO CALL AND HAVE HIM BRING IN THE INSTRUCTIONS. DR. HUNTER SAW PATIENT. THE SURGICAL PREP IS ENSURE AT LEAST TWICE PER DAY, SHE GETS THESE WITH HER MEALS. PATIENT VISITED IN AFTERNOON. PALLIATIVE CARE VISITED. PATIENT STATED SHE DOES WANT SURGERY. PER DR. HUNTER NOTE, HE IS RECOMMENDING PATIENT STAY IN HOSPITAL TILL TRANSFER TO [facility] FOR SURGERY ON MONDAY 11/13. PATIENT SEEMS ANXIOUS TODAY. PROVIDED LISTENING. PATIENT DRINKING ENSURES WELL. PATIENT IS PLEASANT AND COOPERATIVE WITH CARE.
--- NOTE | 2021-10-09 03:41 | NUR ---
SHIFT SUMMARY: IMPROVED PAIN CONTROL DURING THIS SHIFT. PATIENT ABLE TO REST COMFORTABLY FOR MAJORITY OF SHIFT. ROUNDED ON PATIENT FREQUENTLY- CALL DANIEL IN REACH, BELONGINGS IN REACH, BED IN LOW POSITION. PT CONTINUES TO BE A/O X3 OCCASSIONALLY DISORIENTED TO TIME
--- NOTE | 2021-10-09 12:00 | NUR ---
Received call from pt's bedside RN that pt has requested to be transitioned to comfort care with plan for d/c with hospice when possible. Visit made to the bedside. Pt is calm and smiling in her greeting. She appears to be relieved to have made a firm decision and wants to talk about plans, her worry for her and is in the process of reaching out to other family, friends and neighbors. She appears well supported but states her is 88, frail and unable to care for her at home. She asks about placement for EOL care and whether it will cost her out of pocket. I asked that we focus on getting her s/s managed well and that when CM avail from [facility] on Monday we can start exploring options for placement and funding with her. Pt agreeable. Her primary distressing s/s is nausea and pain. She does not appear anxious. She has been getting some IV pain medications and that has kept her pain much more tolerable starting yesterday she states. WE discussed comfort care at length, regarding rx and interventions that would be continued and those that would be d/c'd such as lab work, testing, IV fluids. Pt is agreeable and asks that I contact Dr to request orders for comfort care, which I did and reported on above information from my visit. Comfort care VO obtained and entered. Increased zofran dosing per comfort care order set as RN reported that current dosing is not effective and that pt reports continuous nausea despite rx. Pt states her was very upset initially, when she spoke to him about her decision but then called back to express his support of her wishes. Plan to visit daily for s/s management and support. expected in later today and I will return to meet with him if indicated/requested. Pt did not feel it would be necessary to meet with him today and is looking forward to his visit.
--- NOTE | 2021-10-09 16:46 | NUR ---
SUMMARY PATIENT TRANSITIONED TO COMFORT CARE TODAY. PATIENT VISITED IN AFTERNOON. PATIENT MEDICATED FOR PAIN X2. PATIENT RESTING COMFORTABLY. PATIENT TRANSFERED TO ROOM 310.
--- NOTE | 2021-10-09 17:20 | NUR ---
PT ARRIVED TO ROOM. PT A&O X4 AND IN PLEASENT MOOD. PT DID C/O PAIN W/ ROLL CHANGE, MEDICATED PER EMAR. PT DRY HEAVING, NO EMESIS, MEDICATED PER EMAR. ORIENTATED TO ROOM, CALL LIGHT W/IN REACH. REFUSED DINNER/ENSURE @ THIS TIME DUE TO NAUSEA.
--- NOTE | 2021-10-10 07:17 | NUR ---
SHIFT SUMMARY PT IS A 80 Y/O FEMALE, ADMITTED FOR DIVERTICULITIS AND CURRENTLY ON COMFORT CARE. SHE IS A&O X 4, BEDREST. SHE WAS MEDICATED FOR ABD AND BACK PAIN WITH PRN ROXANOL AND NORCO. NO C/O NAUSEA OR SOB. NO ACUTE CHANGES IN PT CONDITION NOTED DURING THE NIGHT. REPORT GIVEN TO ONCOMING RN.
--- NOTE | 2021-10-10 11:00 | NUR ---
Pal Care comfort care visit. Pt reports significant pain and is demonstrating nonverbal pain indicators. Her RN had already been notified by pt and came in to administer pain medication while I was visiting. Pt states Nausea is improved from yesterday. She cont to keep emesis bags on bed with her but says it is mostly due to gagging with increased secretions in her upper airway. Pt is looking forward to a visit from her son today and reports good visit with her yesterday. Pt slightly apprehensive re: dc planning but is at peace with decision to transition to comfort care and hopeful placement will not be difficult. She states, I have not been one of those people who say, "Don't ever put me in a chcf". Pal Care to cont to visit for s/s management and support. CM will be available tomorrow to assist with dc planning and possible placement options.
--- NOTE | 2021-10-10 15:14 | NUR ---
Second comfort care visit due to increase in pain and beginning of spasmotic lower abd pain radiating to chest, neck, shoulders. Witnessed several episodes of waves of cramping and pain. Pt went longer than usual without analgesics because she was being protective of visiting and did not want him to see her asking for or reporting need for pain meds. Both RN and I discussed need for not allowing pain to get out of control as it is more difficult to get back to tolerable level. Pt more fearful of spasmotic pain and its radiation. Planned w/pt & RN to administer medications available per eMAR on more regular schedule. Pt feels PO pain med works better and was given that and ativan for anxiety also. Contacted pharmacy and Dr, obtained VO and entered for B&O suppository as pt clearly has abdominal spasmotic cramping pain that is not well treated with narcotics. Pt reports she does not remember passing gas since yesterday and no bm for "a couple days". Pt's progressing rectal CA may be obstructing more than previously. Pt looking forward to visit from her son later today. She was encouraged to report pain and changes without stoically suffering while family in visiting. Pt verbalized understanding. Plan reviewed with RN.
--- NOTE | 2021-10-11 06:57 | NUR ---
SHIFT SUMMARY P IS A 80 Y/O FEMALE, ADMITTER FOR DIVERTICULITIS AND CURRENTLY ON COMFORT CARE. SHE IS A&O X 3, BEDREST, INCONTINENT. SHE WAS MEDICATED ONCE THIS AM FOR SEVERE ABD AND BACK PAIN WITH PRN ROXANOL AND NORCO. NO C/O NAUSEA OR SOB. PT SLEPT WELL THROUGH THE NIGHT. NO OTHER ACUTE CHANGES IN PT CONDITION NOTED DURING THE NIGHT. WILL CONTINUE TO MONITOR AND TREAT PER EMAR UNTIL HAND OFF TO DAY SHIFT RN.
--- NOTE | 2021-10-11 11:10 | NUR ---
Pal Care comfort care visit - Pt appears much more comfortable this am. She reports n/v. RN is alternating zofran with phenergan supp and this has helped per pt. Good therapeutic conversation re: pain and reporting, no shame in pain or her illness. Pt cont to be pleasant and expressess appreciation for care to all. Reports feeling anxious and states ativan has really helped with that and pain management. PANEL BEATER and RN both rounded while I was in room and we repositioned pt to her comfort. Plan cont daily visits. Case conferenced with DARI KABA earlier this am re: dc planning needs.
--- NOTE | 2021-10-11 13:35 | NUR ---
PT ALERT AND ORINETED, STATES SEVERE PAIN IN ABD AND BACK, ALSO C/O MILD NAUSEA, AND IS AFRAID WILL WORSTEN WITH ROXONOL, SO MEDICATED WITH ZOFRAN, ROXONOL AND ATIVAN. MILD TO MOD ANXIETY RELATED TO ILLNESS. TOLERATING ICE CHIPS AND SIPS. AWAITING PLACEMENT FOR HOSPICE.
--- NOTE | 2021-10-11 16:32 | NUR ---
SUMMARY- PT ON COMFORT CARE- ALERT AND ORIENTED X4. TAKING IN SIPS AND CHIPS. PAIN CONTROLLED WITH ROXONOL. MILD ANXIETY CONTROLLED WITH ATIVEN. NAUSEA INTERMITTANT CONTROLLED WITH ZOFRAN AND PHENERGAN SUPP. MULTIPLE VISITORS. PLAN TO DC TO FACILITY ON HOSPICE.
--- NOTE | 2021-10-12 03:58 | NUR ---
SHIFT SUMMARY ADMITTED FOR DIVERTICULITIS. DNR CODE. COMFORT CARE. MEDIPORT ACCESSED, DRESSING CHANGED THIS SHIFT. AWAITING PLACEMENT ON HOSPICE. Q 2 TURNS. INCONTINENT. CONFUSED. HAS STAGE FOUR RECTAL CANCER W/METS. PT RESTED THROUGHOUT SHIFT, ONLY WAKING FOR CHANGES AND TURNS.
--- NOTE | 2021-10-12 14:23 | NUR ---
PT HAS BEEN SLEEPING ALL MORNING AND APPEARED COMFORTABLE, RESP EVEN UNLABORED. FAMILY AT BEDSIDE NOW TO VISIT WITH PT. ORAL CARE TO PT, SHE AWOKEN AND IS ALERT AND VERBAL BUT CONFUSED. ABLE TO TAKE SIPS OF WATER AND ICE SHIPS. MEDICATED WITH ZOFRAN BEFORE GIVING ROXONOL. PT HAD ASKED FOR ROXONOL FOR PAIN. WILL ONUR FOR COMFORT.
--- NOTE | 2021-10-12 14:26 | NUR ---
PT SLEEPING, APPEARS COMFORTABLE
--- NOTE | 2021-10-12 15:01 | NUR ---
Comfort care visit. Pt had been medicated for pain and anxiety recently per RN and pt was sound asleep. I did not disturb her. She appears comfortable at this time. I did not note nonverbal indicators of pain, anxiety or distress at this time. Case conferenced with CM and nursing today re: s/s management and d/c planning. Current regime appears to be working for management of s/s.
--- NOTE | 2021-10-12 18:45 | NUR ---
SUMMARY- PT HAS REMAINED COMFORTABLE ALL DAY. SLEPT MOST OF THE DAY. WHEN AWAKE IS VERBAL, PLEASANT AND COOPERATIVE. 174 TURNED AND CHANGED INCONT ATTENDS AND REPOSITIONE. MEDICATED WITH ROXONOL X2 TODAY WITH GOOD RELEIF. SON AND IN TO VISIT X3 TODAY. PT TAKING IN SIPS OF WATER AND ICE CHIPS.
--- NOTE | 2021-10-13 04:23 | NUR ---
SHIFT SUMMARY ADMITTED FOR DIVERTICULITS/SEPSIS. DNR. COMFORT CARE. PLAN IS FOR PLACEMENT ON HOSPICE. MEDIPORT IN PLACE AND ACCESSED. DENIES NAUSEA THIS SHIFT. PAIN MEDS GIVEN, ANXIETY MEDS GIVEN. SHE IS INCONTINENT. SHE IS A&O X 2-3, FORGETFUL. SHE IS BEDRIDDEN. WE DID PROVIDE A SOFT TOUCH CALL BUTTON FOR HER EASE OF USE. SHE IS COOPERATIVE WITH CARE
--- NOTE | 2021-10-13 11:23 | NUR ---
PT AWAKE DENIED PAIN AT THIS TIME. ASSISTED THE PT TO SIT AT THE SIDE OF THE BED
--- NOTE | 2021-10-13 11:25 | NUR ---
PT ASSITED UP TO THE SIDE OF THE BED AGAIN TO SIT, THEN LAID BACK MORPHINE GIVEN FOR PAIN. PTS FAMILY IN TO SEE HER
--- NOTE | 2021-10-13 11:26 | NUR ---
PT APPEARS COMFORTABLE AT THIS TIME
--- NOTE | 2021-10-13 17:35 | NUR ---
PT SLEEPING APPEARS TO BE COFORTABLE AT THIS TIME
--- NOTE | 2021-10-13 17:36 | NUR ---
MEDICATED THE PT FOR PAIN SHE REQUESTED. CALL LIGHT IN REACH
--- NOTE | 2021-10-13 17:37 | NUR ---
ASSISTED THE PATIENT UP TO THE SIDE OF THE BED. PT TOOK DRINKS OF ORANGE JUICE AND WATER. PT LAID BACK DOWN, APPEARS TO BE COMFORTABLE
--- NOTE | 2021-10-13 17:39 | NUR ---
PT IS AWAKE FAMILY AT THE BEDSIDE. THE PT WAS MEDICATED FOR PAIN AND ANXIETY PER HER REQUEST. PT APPEARS TO BE COMFORTABLE AT THIS TIME
--- NOTE | 2021-10-14 00:35 | NUR ---
PT resting quietly after getting pain & anxiety rx around 1800. She asked to sit on side of bed & got up to BSC with 2 assist GB. She is weak & confused. Bed alarm on & continues on comfort care for cancer with mets.
--- NOTE | 2021-10-14 06:02 | NUR ---
80 year old Female with metastatic colon cancer on comfort measures medicated x 1 with 20 mg sl morphine. Extra support offered for confusion & reorientated. PT sat upright with legs off bed for several hours & propped on pillows for comfort. Up to BSC x 1 with 2 max assist fww gait belt.
--- NOTE | 2021-10-14 11:28 | NUR ---
PT APPEARS COMFORTABLE, APPEARS TO BE SLEEPING
--- NOTE | 2021-10-14 11:29 | NUR ---
PT IS AWAKE UP TO THE SIDE OF THE BED MORPHINE GIVEN FOR PAIN. DR. CALIXTO IN WITH THE PT
--- NOTE | 2021-10-14 11:30 | NUR ---
PT IS AWAKE FAMILY AT THE BEDSIDE. PT MEDICATED FOR PAIN AND ANXIETY. LIDODERM PATCH ORDERED AND APPLIED FOR LOW BACK PAIN. DR. CALIXTO AT THE BEDSIDE TO MEET WITH THE FAMILY
--- NOTE | 2021-10-14 14:04 | NUR ---
PT SLEEPING APPEARS TO BE COMFORTABLE AT THIS TIME
--- NOTE | 2021-10-14 15:03 | NUR ---
Received referral from [facility] Dog Races Manager (Elvi Betancourt) on 10/14/2021. Patient is to discharge 10/15/2021 with orders for hospice and family elected [facility]. Gathered supporting documentation for referral (face sheet, labs, imaging, progress notes, palliative care note, and H&P) and sent to [facility] staff accountant (Humble Salamanca) for review of hospice appropriateness and ability to accept patient onto service post discharge. Will await further information from hospice staff accountant regarding the above. Becky Zaldivar Referral Liaison
--- NOTE | 2021-10-14 15:04 | NUR ---
Received notification from [facility] consultative sales associate (Humble Salamanca) that patient is hospice appropriate and able to be accepted onto service post discharge. Will attempt to meet with patient and family today to further discuss the above. Will continue to monitor and follow for discharge. Becky Zaldivar Referral Liaison
--- NOTE | 2021-10-14 17:29 | NUR ---
Met with patient's (Vinnie Shepherd" Juliette), patient's daughter (Charlotte Gotti), and patient's son (Jamar Segovia) to further hospice services and election of [facility]. Patient's family is agreeable to the above. Discussed what hospice is (reserved for patients with a terminal diagnosis with life expectancy of 6 months or less). Discussed that some patients exceed the 6 months expectancy and stay on service while other patients may stabilize and come off hospice. Patient's family verbalized understanding of the above. Discussed with patient's family that hospice service focuses on quality of life at the end of life and that rather than measuring the quantity of days, the quality of those days would be measured. Discussed with patient's family that with hospice service the goal would be to keep the patient out of the hospital and comfortable by managing symptoms at home. Patient's family verbalized understanding. Discussed the people, prescriptions, and equipment of hospice. People- discussed the team of people and their roles (RNs, chaplains, therapists, LCSWs, CNAs, and volunteers) that would be there to support not only the patient but also their family during this time. Explained to the patient's family that the team would be custom tailored to the patient needs during this time. Patient's family verbalized understanding. Patient's does make note of patient's [employer] hebert, and states that unless we have a rabbi on staff, they will have no use for chaplains. Prescriptions- discussed that we utilize a mail order pharmacy ([facility]) to provide medications related to the hospice diagnosis and for symptom management. All other medications that patient chose to stay on would be patient's and/or patient's family's responsibility to provide and pay for. Patient's family verbalized understanding. Discussed that upon discharge patient would be given three prescriptions, one for morphine 20mg/mL #30mL (0.25mL - 1mL PO/SL Q1H PRN SOB/pain), one for lorazepam 0.5mg #20 (1 - 2 PO Q4H PRN anxiety), and one for hyoscyamine 0.125mg SL tablets #30 (1 SL Q2H PRN secretions). Explained to the patient's family that as patient would not yet be admitted to hospice service at the time of discharge those prescriptions would be patient/patient's family's responsibility to fill and pay for. Patient's family verbalized understanding. Equipment- discussed with patient's family that we contract through [employer] to provide DME such as hospital beds, commodes, etc. to patient. Discussed with patient's family that this sheet writer would discuss equipment needs with [facility] tomorrow- 10/15/2021 to clarify if there were any equipment needs for patient. Patient's family verbalized understanding. Discussed with patient's family that once patient was admitted onto hospice services the goal would be for them to contact us ([facility]) over contacting 911 or presenting back to the hospital/ED. Patient's family verbalized understanding. Discussed the tentative discharge plans for Monday- 10/15/2021 between 1030 and 1100 with preferred method of transport- medical transport via gurney. Discussed with patient's family that this sheet writer would arrange transportation for patient. Patient's family verbalized understanding. Offered a chance for patient's family to ask questions regarding the above of which there were none. Will continue to monitor and follow as appropriate for discharge. Becky Zaldivar Referral Liaison
--- NOTE | 2021-10-14 18:22 | NUR ---
SHIFT SUMMARY- ASSUMED CARE OF THIS PT AT 1400 SHE SLEPT FOR MOST OF THIS SHIFT. FAMILY AT BEDSIDE DURING THIS SHIFT. NO COMPLAINTS OF PAIN. HER BED IS IN THE LOW POSITION AND CALL LIGHT IS WITIN REACH.
--- NOTE | 2021-10-14 22:17 | NUR ---
Received patient alert, no complaint of pain or disconfort. We will continue to monitor patient for any changes.
--- NOTE | 2021-10-15 00:14 | NUR ---
No changes in patient status.
--- NOTE | 2021-10-15 04:25 | NUR ---
Patient lay in bed confortably, no complaint of pain voices. Patient had been reposition and offered drink. Bed in low position, call light within reach. We will continue to provides confort care for patient.
[2021-10-15 11:17] LABS: Influenza A, PCR NEGATIVE (NEGATIVE); Influenza B, PCR NEGATIVE (NEGATIVE); Resp Syncytial Virus, PCR NEGATIVE (NEGATIVE); SARS-Cov-2 (COVID-19) PCR, MMC NEGATIVE (NEGATIVE)
--- NOTE | 2021-10-15 13:04 | NUR ---
Patient is to discharge at 1330 to [facility] with orders for hospice. Contacted [facility] ([facility]) to arrange gurney transport to facility listed above. Pick-up at 1330 will be provided by the above. Faxed copy of face sheet, PCS form, and DNR status to [facility] office per protocol. Placed copies of the above in nurse time study observer for transportation agent. Notified [facility] Contact [facility] (Elvi Betancourt), [facility] (Lila Jensen), Charge RNs (Carina Russell and Margarita Huang), and bedside RN (Vik Alejo) of the above. All are agreeable to the above. Requested discharge orders from hospitalist (Dr. Sher) [facility] Contact [facility]. Provided hard copy prescriptions for morphine and lorazepam to facility via facility discharge envelope. Copies of prescriptions faxed to [facility] ([facility]) and [facility] (facility's preferred pharmacy). Faxed copies of discharge order and med list to [facility] bulldozer operator and [facility] ([facility]). Additionally discharge medication list was faxed to [facility] (facility's preferred pharmacy). No further interventions required. Becky Zaldivar Referral Liaison
--- NOTE | 2021-10-15 13:07 | NUR ---
REPORT CALLED TO JOSÉ MIGUEL COBB AT [facility], PT TO BE TRANSFERED VIA GURNEY. [place] AT THE BEDSIDE AT THIS TIME
--- NOTE | 2021-10-15 13:36 | NUR ---
PT IS AWAKE DENIES PAIN AT THIS TIME.
--- NOTE | 2021-10-15 13:37 | NUR ---
PT IS AWAKE. LIDOCAINE PATCH APPLIED TO LOW BACK. PT DECLINED MORPHINE AT THIS TIME. PT GIVEN SIPS OF WATER AND JUICE
--- NOTE | 2021-10-15 13:39 | NUR ---
FAMILY AT THE BEDSIDE. MORPHINE GIVEN FOR PAIN PT IS AWAKE AND ALERT
--- NOTE | 2021-10-15 13:40 | NUR ---
GAVE MORPHINE FOR PAIN PT TO BE TRANSFERED TO [facility]. FAMILY AT THE BEDSIDE
--- NOTE | 2021-10-15 13:41 | NUR ---
PT DISCHARGED PT TRANSFERED VIA [facility] TO [facility]. REPORT CALLED. PT AWAKE AT THE TIME OF TRANSFER BELONGINGS RELEASED TO THE PT AND FAMILEY
[2021-10-15] MEDS ORDERED: FENTANYL1 EA12 TOP (15:26)
[2021-10-15] MEDS ORDERED: LORA.5 PO (15:27)
[2021-10-15] MEDS ORDERED: MORP20L SL (15:28)
[2021-10-15] MEDS ORDERED: ANASPAZ0.125 M1 SL (15:33)
--- NOTE | 2021-10-15 17:11 | NUR ---
Per Dr. Sommers discharge appropriate. Patient and family do not oppose discharge. Patient discharged to [facility]: [facility]. [facility] initiated services. Date of discharge: 10/15/2021 Date of admission: 10/06/2021 Transportation provided by: [facility]/arranged by [facility] DME Ordered: coordinated by [facility] Follow-ups needed: [facility] will contact patient to schedule hospital follow-up visit if needed. Provider/PCP: JUAN Stevenson Specialty: Hospice provided by [facility]: [phone] Comment: [facility] will contact PCP with patient transitional needs/appointments/medication management, social service needs. No barriers to discharge. Patient has a support network.
== END 2021-10-15 13:36 | DRG 872 ==
LOC: ER 02:09 → ERHOLD 06:13 → MEDS 06:13 → ENPENDDIS 10-15 10:59 → MEDS 10-15 13:36
PROVIDERS: Family Medicine; Hospitalist; Internal Medicine; Student in an Organized Health Care Education/Training Program; ADMIT Family Medicine
DX: A41.9 Sepsis, unspecified organism (principal); C20 Malignant neoplasm of rectum; K57.20 Diverticulitis of large intestine with perforation and abscess without bleeding; Z20.822 Contact with and (suspected) exposure to COVID-19; Z66 Do not resuscitate; I25.10 Atherosclerotic heart disease of native coronary artery without angina pectoris; R65.20 Severe sepsis without septic shock; K43.9 Ventral hernia without obstruction or gangrene; E78.5 Hyperlipidemia, unspecified; E03.9 Hypothyroidism, unspecified; M54.50 Low back pain, unspecified; Z51.5 Encounter for palliative care; Z92.21 Personal history of antineoplastic chemotherapy; Z95.1 Presence of aortocoronary bypass graft; Z98.890 Other specified postprocedural states; Z87.891 Personal history of nicotine dependence; Z88.0 Allergy status to penicillin; Z88.8 Allergy status to other drugs, medicaments and biological substances; Z79.82 Long term (current) use of aspirin; Z79.899 Other long term (current) drug therapy
CPT/HCPCS: 0241U; 36415; 71045; 74177; 80048; 80053; 81001; 83605; 85025; 87040; 87077; 87086; 87186; 96365; 96367; 96375; 97162; 97530; 99285-25; A9270; J0744; J1170; J1642; J2270; J2405; J3010; J7030; J7050; J7120; P9612; Q9967